=== PATIENT | female | born 1975 | race Caucasian/White ===

== ENCOUNTER 2025-07-01 12:12 | Outpatient (CLI) | payer OTHER, SELFPAY ==
[2025-07-01 15:21] LABS: Chlamydia DNA Amplified* NOT DETECTED (No Detected); GC DNA Amplified* NOT DETECTED (No Detected)
== END 2025-07-01 12:13 | disposition home or self-care (01) ==
LOC: NFLDUCREF 12:12
PROVIDERS: Visit Provider Physician Assistant
DX: R30.0 Dysuria (principal); N76.0 Acute vaginitis
CPT/HCPCS: 87086; 87491; 87591